=== PATIENT | female | born 1945 | race American Indian/Alaskan Native ===

== ENCOUNTER 2016-05-02 17:44 | Outpatient (CLI) | payer MEDICARE ==
[2016-05-02 18:22] LABS: Blood Urea Nitrogen 15 mg/dL (7-17)
--- NOTE | 2016-05-02 19:50 | Cat Scan Report ---
FINAL REPORT EXAM: CT CHEST W CON HISTORY: CHEST PAIN TECHNIQUE: Standard enhanced CT of the chest at 2.5 millimeter axial increments. Coronal and sagittal reconstruction was also obtained. Contrast: 100 ml Omnipaque 300 given IV PRIORS: None. FINDINGS: Mild linear fibrosis versus atelectasis in the right upper lobe and right lower lobe medially is seen. Otherwise, the lung parenchyma are expanded and clear with no evidence for parenchymal nodules, infiltrates, vascular congestion, pleural effusion, or pneumothorax. There is no evidence for mediastinal, hilar, or axillary adenopathy. Mediastinal silhouette is normal. The esophagus is collapsed. However, a moderate hiatal hernia is noted. The trachea is midline. Cardiovascular structures are within normal limits. Cardiac size and aorta are normal. Images through the lung bases include upper abdomen which show a nonobstructing 7 x 4 mm calculus in the right midpole kidney. Bony structures show no focal abnormalities. No evidence for bony fracture is seen. Large osteophytes off the left side of the lower thoracic spine are noted. IMPRESSION: 1. no acute abnormality identified in the chest. 2. Linear fibrosis versus atelectasis in the right upper and right lower lobes. 3. Moderate hiatal hernia 4. Nonobstructing calculus in the right kidney.
== END 2016-05-02 17:45 | disposition home or self-care (01) ==
LOC: CT 17:44
PROVIDERS: ATTEND Internal Medicine
DX: N20.0 Calculus of kidney (principal); K44.9 Diaphragmatic hernia without obstruction or gangrene; J84.10 Pulmonary fibrosis, unspecified; J98.11 Atelectasis; M25.78 Osteophyte, vertebrae; R07.9 Chest pain, unspecified
CPT/HCPCS: 36415; 71260; 82565; 84520; Q9967

== ENCOUNTER 2017-09-01 14:31 | Emergency (ER) | payer BC, MEDICARE ==
--- NOTE | 2017-09-01 16:24 | Emergency Department Report ---
ED Extremity Problem HPI - General Chief complaint: Extremity Problem,Nontraumatic Stated complaint: FINGER/HIP/KNEE PAIN Time Seen by Provider: 09/01/17 16:05 Source: patient Mode of arrival: Ambulatory Limitations: No Limitations - History of Present Illness Initial comments: Patient reports that she is having right knee pain and right middle finger pain. She says she had injury about 20-30 years ago to her right middle finger where she was hit with a basketball in she didn't address that several finger at the right middle top is not straight. She says she is having pain is radiating up to her forearm. She had no traumatic injury since 20-30 years ago. Patient also reports that 20-30 years ago she injured her right knee and had to have arthroscopic surgery with a went in and cleaned her knee out. She said 2 weeks ago she started having knee pain and now she has to be using a cane. She reports swelling to her right leg that is painful. Denies any shortness of breath or chest pain. Patient has a history of breast cancer status post left mastectomy and was placed on tamoxifen which she took for 5 years. She has been cancer free for 7 years but still see her oncologist for yearly checkup. Denies any recent history of long distance travel by car or ear pain. Denies taking any hormones. Patient does admits to slowing down due to increased pain in her knee and having to use a cane. Denies any nausea or vomiting. Denies any fever or chills. Denies any headache or back pain. Patient does have a primary care doctor and oncologist. Patient reports that she's never been diagnosed with arthritis. Pain is located in her right knee and leg and right middle finger. MD Complaint: extremity pain, extremity swelling, joint swelling, joint paint Onset/Timin -: week(s) Location: upper extremity, lower extremity History of Same: No -: No myalgia, Yes arthralgia, No fever, No associated dyspnea, No associated chest pain Radiation: proximal (from right middle finger distally to right forearm) Severity scale (0 -10): 10 Quality: aching Consistency: constant Improves with: immobilization, rest Worsens with: weight bearing, walking, exertion, palpation (leg) Associated Symptoms: arthralgias. denies: chest pain, shortness of breath, fever, myalgias, rash - Related Data Previous Rx's Medication Instructions Recorded Last Taken Type Ibuprofen [Motrin] 600 mg PO Q8H PRN #12 tablet 09/01/17 Unknown Rx Allergies Allergy/AdvReac Type Severity Reaction Status Date / Time codeine AdvReac Nausea Unverified 05/02/16 17:45 ED Review of Systems ROS: Stated complaint: FINGER/HIP/KNEE PAIN Other details as noted in HPI Constitutional: denies: chills, fever ENT: denies: ear pain, throat pain, congestion Respiratory: denies: cough, orthopnea, shortness of breath, SOB with exertion, SOB at rest, stridor, wheezing Cardiovascular: denies: chest pain, palpitations, edema, syncope Gastrointestinal: denies: abdominal pain, nausea, vomiting, diarrhea, hematemesis, hematochezia Genitourinary: denies: urgency, dysuria, frequency, hematuria, discharge Musculoskeletal: joint swelling, arthralgia. denies: back pain, myalgia Skin: denies: rash, lesions, pruritus Neurological: denies: headache, weakness, numbness, paresthesias, confusion, abnormal gait, vertigo ED Past Medical Hx - Past Medical History Previous Medical History?: Yes Additional medical history: Breast cancer hx status post left mastectomy. Right knee injury greater than 20 years ago - Surgical History Past Surgical History?: Yes Hx Breast Surgery: Yes (left mastectomy) Additional Surgical History: Right knee surgery - Family History Family history: hypertension - Social History Smoking Status: Never Smoker Substance Use Type: None Other Social History: Patient is legally - Medications Home Medications: Home Medications Medication Instructions Recorded Confirmed Last Taken Type Ibuprofen [Motrin] 600 mg PO Q8H PRN #12 tablet 09/01/17 Unknown Rx ED Physical Exam - General Limitations: No Limitations General appearance: alert, in no apparent distress - Head Head exam: Present: atraumatic, normocephalic, normal inspection - Eye Eye exam: Present: normal appearance, PERRL, EOMI Pupils: Present: normal accommodation - ENT ENT exam: Present: normal exam, normal orophraynx, mucous membranes moist - Neck Neck exam: Present: normal inspection, full ROM, other (no C-spine tenderness). Absent: tenderness, lymphadenopathy - Respiratory Respiratory exam: Present: normal lung sounds bilaterally. Absent: respiratory distress, wheezes, rales, rhonchi, stridor, chest wall tenderness, accessory muscle use, decreased breath sounds, prolonged expiratory - Cardiovascular Cardiovascular Exam: Present: regular rate, normal rhythm, normal heart sounds. Absent: systolic murmur, diastolic murmur - GI/Abdominal GI/Abdominal exam: Present: soft, normal bowel sounds. Absent: distended, tenderness, guarding, rebound, rigid, organomegaly, mass, bruit, pulsatile mass , hernia - Extremities Exam Extremities exam: Present: full ROM, tenderness, normal capillary refill, joint swelling, other (no clubbing or cyanosis. +2 pulses to all extremities. Patient with swelling to right leg. No neurovascular compromise. Bilateral pes planus on physical exam.). Absent: pedal edema, calf tenderness - Expanded Upper Extremity Exam Right General: Absent: normal inspection Shoulder Exam: Present: normal inspection, full ROM. Absent: tenderness, swelling, abrasion, laceration, ecchymosis, deformity, crepidus, dislocation, erythema, tenderness over AC joint Upper Arm exam: Present: normal inspection, full ROM. Absent: tenderness, swelling, abrasion, laceration, ecchymosis, deformity, crepidus, dislocation, erythema Elbow exam: Present: normal inspection, full ROM. Absent: tenderness, swelling , abrasion, laceration, ecchymosis, deformity, crepidus, dislocation, erythema, effusion, pain w/ pronation/supination, tenderness over radial head Forearm Wrist exam: Present: normal inspection, full ROM. Absent: tenderness, swelling, abrasion, laceration, ecchymosis, deformity, crepidus, dislocation, erythema, tenderness over anatomical snuff box, pain with axial thumb loading Hand Wrist exam: Present: full ROM, swelling (DIP and PIP joints swelling bilateral), deformity (minimal deformity noted to right finger at distal DIP joints. The area is minimally flexed but she is able to extend area but does not stay in extended position.). Absent: normal inspection, tenderness, abrasion, laceration, ecchymosis, crepidus, dislocation, erythema, amputation, nail avulsion, subungual hematoma Neuro motor exam: Present: wrist extension intact, thumb opposition intact, thumb IP flexion intact, thumb adduction intact, fingers 2-5 abduction intact Neurosensory exam: Present: 2-point discrimination. Absent: radial nerve intact , ulnar nerve intact, median nerve intact Vascular: Present: normal capillary refill, radial pulse, brachial pulse, ulnar pulse. Absent: vascular compromise, Pallo, pulse deficit radial art, pulse deficit ulnar art, pulse deficit brachial art - Expanded Lower Extremity Exam Right Hip exam: Present: normal inspection, full ROM, pelvic stability. Absent: tenderness, swelling, abrasion, laceration, ecchymosis, deformity, crepidus, dislocation, erythema, external rotation, internal rotation, shortening Upper Leg exam: Present: normal inspection, full ROM. Absent: tenderness, swelling, abrasion, laceration, ecchymosis, deformity, crepidus, dislocation, erythema Knee exam: Present: full ROM, tenderness (anterior, posterior and bilateral), swelling (mild swelling. ), crepidus, full knee extension. Absent: abrasion, laceration, ecchymosis, deformity, dislocation, erythema, effusion, pain w/ pronation/supination, posterior draw sign, pain/laxity with valgus, pain/laxity with varus Lower Leg exam: Present: full ROM, tenderness (leg), swelling (mild swelling). Absent: normal inspection, abrasion, laceration, ecchymosis, deformity, crepidus , dislocation, erythema, palpable cord, Andriy's sign Ankle exam: Present: normal inspection, full ROM. Absent: tenderness, swelling , abrasion, laceration, ecchymosis, deformity, crepidus, dislocation, erythema Foot/Toe exam: Present: full ROM. Absent: normal inspection, tenderness, swelling, abrasion, laceration, ecchymosis, deformity, crepidus, dislocation, erythema, amputation, puncture wound, foreign body, calcaneal tenderness, tenderness at base of 5th metatarsal, nail avulsion Neuro vascular tendon exam: Present: no vascular compromise. Absent: pulse deficit, abnormal cap refill, motor deficit, sensory deficit, tendon deficit, extremity cold to touch, abnormal 2-point discrimination, decreased fine/light touch, foot drop, peroneal nerve deficit, significant pain with passive ROM of distal joint Gait: Positive: observed and limited by pain - Back Exam Back exam: Present: normal inspection, full ROM, other (ambulates with cane). Absent: tenderness, CVA tenderness (R), CVA tenderness (L), muscle spasm, paraspinal tenderness, vertebral tenderness, rash noted - Neurological Exam Neurological exam: Present: alert, oriented X3, normal gait, reflexes normal. Absent: motor sensory deficit - Psychiatric Psychiatric exam: Present: normal affect, normal mood - Skin Skin exam: Present: warm, dry, intact, normal color. Absent: rash ED Course Vital Signs 09/01/17 09/01/17 09/01/17 15:40 18:10 19:37 Temperature 98.1 F Pulse Rate 73 70 Respiratory 18 16 17 Rate Blood Pressure 158/71 Blood Pressure 165/79 [Right] O2 Sat by Pulse 100 99 Oximetry - Reevaluation(s) Reevaluation #1: 09/01/17 17:49 Patient stated that she receive Motrin 800 mg which relieved her pain. X-ray showing patient with osteopenia and osteoarthritis. Patient with unilateral mild swelling to right lower extremity and she is concerned for blood clot. She has a history of breast cancer in the past and was on tamoxifen for 5 years. She said she has been breast cancer free for 7 years. Given her age, history of breast cancer, recent change in mobility due to right knee pain and having to use cane, patient is at increased risk for DVT and patient agrees that she will take Lovenox 1 dose. Risks versus benefits explained to her and she was understanding. She will return tomorrow to get Doppler study of her right lower extremity. Lab work orders and pending. Reevaluation #2: 09/01/17 19:16 Patient is stable. I discussed x-ray results with patient and she was understanding. Coags stable. Patient awaiting in Lovenox injection to be discharged home. Reevaluation #3: 09/01/17 19:31 Patient is stable and she received 100 mg of Lovenox subcutaneous. Outpatient Doppler ultrasound to right lower extremity scheduled and patient given information that she needs to return to the emergency room if she has positive blood clot. Pain is controlled with Motrin. ED Medical Decision Making - Lab Data Result diagrams: 09/01/17 18:00 09/01/17 17:50 Lab Results 09/01/17 09/01/17 09/01/17 Range/Units 17:50 17:59 18:00 WBC 5.9 (4.5-11.0) K/mm3 RBC 3.79 (3.65-5.03) M/mm3 Hgb 10.9 (10.1-14.3) gm/dl Hct 34.2 (30.3-42.9) % MCV 90 (79-97) fl MCH 29 (28-32) pg MCHC 32 (30-34) % RDW 14.4 (13.2-15.2) % Plt Count 356 (140-440) K/mm3 Lymph % (Auto) 27.8 (13.4-35.0) % [place] % (Auto) 6.9 (0.0-7.3) % Eos % (Auto) 1.2 (0.0-4.3) % Baso % (Auto) 1.1 (0.0-1.8) % Lymph # 1.7 (1.2-5.4) K/mm3 [place] # 0.4 (0.0-0.8) K/mm3 Eos # 0.1 (0.0-0.4) K/mm3 Baso # 0.1 (0.0-0.1) K/mm3 Seg Neutrophils % 63.0 (40.0-70.0) % Seg Neutrophils # 3.7 (1.8-7.7) K/mm3 PT 12.4 (12.2-14.9) Sec. INR 0.88 (0.87-1.13) APTT 23.4 L (24.2-36.6) Sec. Sodium 140 (137-145) mmol/L Potassium 4.2 (3.6-5.0) mmol/L Chloride 101.9 (98-107) mmol/L Carbon Dioxide 25 (22-30) mmol/L Anion Gap 17 mmol/L BUN 22 H (7-17) mg/dL Creatinine 0.6 L (0.7-1.2) mg/dL Estimated GFR > 60 ml/min BUN/Creatinine Ratio 37 % Glucose 95 (65-100) mg/dL Calcium 8.9 (8.4-10.2) mg/dL - Radiology Data Radiology results: report reviewed X-ray of right hand please refer to results below X-ray right knee please refer to results below Patient: JOLENE GARCIA MR#: [id number] : 1945 Acct:[id number] Age/Sex: 72 / F ADM Date: 09/01/17 Loc: ED Attending Dr: Ordering Physician: KELLEN LAUREANO Date of Service: 09/01/17 Procedure(s): XR hand 3+V RT Accession Number(s): [id number] cc: KELLEN LAUREANO Fluoro Time In Minutes: FINAL REPORT EXAM: XR HAND 3+V RT HISTORY: rt hand pain no trauma TECHNIQUE: Right hand three views PRIORS: None. FINDINGS: There is narrowing of the radiocarpal joint space. Degenerative changes are seen at the trapezium first metacarpal joint space with joint space narrowing and osteophyte. And no acute fractures are identified. No dislocation seen. Skeletal structures are osteopenic.. No erosive bony changes are identified. IMPRESSION: Degenerative changes at the radiocarpal and 1st carpal metacarpal joint spaces Osteopenia Transcribed By: EDMUNDO Dictated By: LORENE TODD MD Electronically Authenticated By: LORENE TODD MD Signed Date/Time: 09/01/171734 DD/ 34 TD/TT: 09/01/171734 X-ray of right knee Patient: JOLENE GARCIA MR#: [id number] : 1945 Acct:[id number] Age/Sex: 72 / F ADM Date: 09/01/17 Loc: ED Attending Dr: Ordering Physician: KELLEN LAUREANO Date of Service: 09/01/17 Procedure(s): XR knee 3V RT Accession Number(s): [id number] cc: KELLEN LAUREANO Fluoro Time In Minutes: FINAL REPORT EXAM: XR KNEE 3V RT HISTORY: RT knee pain TECHNIQUE: Right knee three views PRIORS: None. FINDINGS: There is marked tricompartmental joint space narrowing. No evidence for joint effusion. Marginal tibial and femoral osteophytes are present. No acute fracture identified. Skeletal structures are osteopenic IMPRESSION: Advanced DJD with tricompartmental joint space narrowing Transcribed By: EDMUNDO Dictated By: LORENE TODD MD Electronically Authenticated By: LORENE TODD MD Signed Date/Time: 09/01/171728 DD/ 28 TD/TT: 09/01/171728 - Medical Decision Making ED course: This case was discussed with Dr. Holt and she is in agreement with patient treatment plan. 1: Osteoarthritis multiple sites, Musculoskeletal pain, Osteopenia - Xray of Right hand and Right knee shows Osteoarthritis and osteopenia. No acute findings. Please refer to Radiology section for detail on reports -Patient take MVI and encouraged to take Calcium supplements to strengthen bones -Fall prevention instruction given. Continue to use cane to prevent falling -Motrin 800 mg given in ED with relief of pain. I will discharge with Motrin for pain management . - referral to orthopedist for management 2: Pes planus on examination - Podiatry referral given 3: swelling to RT Lower extremity- Denies CP or SOB -CBC, BMP and coagulation studies stable. refer to lab section for details - wells Criteria 1 points Low risk group for DVT. Unlikely according to [facility] DVT studies. Due to age and decrease mobility in the past 2 weeks with new onset leg swelling and pain, patient given Lovenox 100 mg SQ for DVT prophylaxis and scheduled for outpatient Vascular study 09/02/2017 RLE venous Doppler study. -Patient given appointment paperwork and instructed if OP Lab does not call her by 9 am that she should call and proceed to lab for testing. - Pt instructed that if her test is Positive for clot in leg then she will be sent back to ED for further evaluation -Charge Nurse given a copy of appointment and written instructions sent to vascular lab for patient to be sent back to ED if Test is positive for blood clot. -D-Dimer excluded from workup due to patient inflammatory status and increase chance for false positive results. Patient discharged from ED in stable condition and was given detail information on discharge diagnosis, treatment plan, lab results, Xray reports and follow up referral. She voiced understanding of information and d/c home with prescription for Motrin prn #12. VSS, afeb. - Differential Diagnosis DVT, fracture, osteoarthritis, Critical care attestation.: If time is entered above; I have spent that time in minutes in the direct care of this critically ill patient, excluding procedure time. ED Disposition Clinical Impression: DVT prophylaxis, Swelling of right lower extremity, Arthralgia of multiple sites, Tricompartment osteoarthritis of right knee, Musculoskeletal pain, Mobility impaired Osteopenia Qualifiers: Osteopenia location: hand Laterality: right Qualified Code(s): M85.841 - Other specified disorders of bone density and structure, right hand Disposition: - TO HOME OR SELFCARE Is pt being admited?: No Does the pt Need Aspirin: No Condition: Stable Instructions: Enoxaparin (Injection), Osteoarthritis (ED), Deep Venous Thrombosis (ED), Fall Prevention for Older Adults (ED), Leg Edema (ED), Musculoskeletal Pain (ED) Additional Instructions: Please follow-up with Dr. Holcomb who is orthopedic doctor for management of arthritis. Please refer to discharge instruction paperwork for phone number and address. You were given Lovenox which is a blood thinner in emergency room for prevention of blood clot since you have swelling to leg and she'll need to return in the morning in for vascular study to get ultrasound of your right lower extremity to rule out blood clot. Vascular lab will be calling in the morning and if the do not call you by 9 AM, please call them to let them know that your scheduled from emergency department to be seen in vascular lab to have ultrasound done. Take Motrin as prescribed for pain but please do not take on an empty stomach as this medication causes irritation to his stomach Continue to follow up with your primary care physician Follow-up with crane operator for flat feet as this could be causing increase in knee pain. Prescriptions: Ibuprofen [Motrin] 600 mg PO Q8H PRN #12 tablet PRN Reason: Pain Referrals: NEPTALI CLEMONS JR, MD [Primary Care Provider] - 2-3 Days GERSON HOLCOMB MD [Staff Physician] - 2-3 Days DANIELE SCALES DPM [Staff Physician] - 2-3 Days
[2017-09-01] MEDS ORDERED: MOTRIN PO ONE (16:44)
--- NOTE | 2017-09-01 17:33 | XRay Report ---
FINAL REPORT EXAM: XR KNEE 3V RT HISTORY: RT knee pain TECHNIQUE: Right knee three views PRIORS: None. FINDINGS: There is marked tricompartmental joint space narrowing. No evidence for joint effusion. Marginal tibial and femoral osteophytes are present. No acute fracture identified. Skeletal structures are osteopenic IMPRESSION: Advanced DJD with tricompartmental joint space narrowing
--- NOTE | 2017-09-01 17:39 | XRay Report ---
FINAL REPORT EXAM: XR HAND 3+V RT HISTORY: rt hand pain no trauma TECHNIQUE: Right hand three views PRIORS: None. FINDINGS: There is narrowing of the radiocarpal joint space. Degenerative changes are seen at the trapezium first metacarpal joint space with joint space narrowing and osteophyte. And no acute fractures are identified. No dislocation seen. Skeletal structures are osteopenic.. No erosive bony changes are identified. IMPRESSION: Degenerative changes at the radiocarpal and 1st carpal metacarpal joint spaces Osteopenia
[2017-09-01 18:07] LABS: Basophils # (Auto) 0.1 K/mm3 (0.0-0.1); Basophils % (Auto) 1.1 % (0.0-1.8); Eosinophils # (Auto) 0.1 K/mm3 (0.0-0.4); Eosinophils % (Auto) 1.2 % (0.0-4.3); Hematocrit 34.2 % (30.3-42.9); Hemoglobin 10.9 gm/dl (10.1-14.3); Lymphocytes # (Auto) 1.7 K/mm3 (1.2-5.4); Lymphocytes % (Auto) 27.8 % (13.4-35.0); Mean Corpuscular HGB Conc 32 % (30-34); Mean Corpuscular Hemoglobin 29 pg (28-32); Mean Corpuscular Volume 90 fl (79-97); Monocytes # (Auto) 0.4 K/mm3 (0.0-0.8); Monocytes % (Auto) 6.9 % (0.0-7.3); Platelet Count 356 K/mm3 (140-440); Red Blood Count 3.79 M/mm3 (3.65-5.03); Red Cell Distribution Width 14.4 % (13.2-15.2)
[2017-09-01 18:27] LABS: INR 0.88 (0.87-1.13); Partial Thromboplastin Time 23.4 Sec. (24.2-36.6)
[2017-09-01 18:55] LABS: BUN/Creatinine Ratio 37; Blood Urea Nitrogen 22 mg/dL (7-17); Calcium 8.9 mg/dL (8.4-10.2); Hemolysis Index 10
[2017-09-01] MEDS ORDERED: LOVENOX SUB-Q ONE (18:56)
[2017-09-01 19:38] VITALS: BP 165/79
== END 2017-09-01 21:45 | disposition home or self-care (01) ==
LOC: ED 14:31
DX: I82.401 Acute embolism and thrombosis of unspecified deep veins of right lower extremity (principal); M25.50 Pain in unspecified joint; M17.11 Unilateral primary osteoarthritis, right knee; M85.841 Other specified disorders of bone density and structure, right hand
CPT/HCPCS: 36415; 73130; 73562; 80048; 85025; 85610; 85730; 96372; 99284; J1650

== ENCOUNTER 2017-09-02 12:53 | Outpatient (CLI) | payer MEDICARE | END 2017-09-02 12:54 | disposition home or self-care (01) | LOC: VAS 12:53 | PROVIDERS: ATTEND Nurse Practitioner Family | DX: M79.661 Pain in right lower leg (principal); M79.89 Other specified soft tissue disorders ==